=== PATIENT | male | born 1945 | race Caucasian/White ===

== ENCOUNTER 2017-08-28 07:12 | Inpatient (IN) ==
[2017-08-28] MEDS ORDERED: DIAZEPAM 5 MG TABLET PO ONE (08:38)
[2017-08-28 09:02] LABS: Basophils # 0.1 10*3/uL (0.0-0.2); Basophils % 0.6 % (0.0-0.8); Eosinophils # 0.5 10*3/uL (0.0-0.87); Eosinophils % 6.4 % (0.00-10.9); Hematocrit 37.2 VOL% (42.0-52.0); Hemoglobin 12.2 GM/DL (14.0-18.0); Immature Granulocytes % 0.4 %; Immature Granulocytes Absolute 0.03 #; Lymphocytes # 1.9 10*3/uL (1.4-4.0); Lymphocytes % 23.9 % (21.2-54.2); Mean Corpuscular HGB Conc 32.8 GM/DL (32-36); Mean Corpuscular Hemoglobin 29 PG (27-34); Mean Corpuscular Volume 87.9 FL (87-102); Mean Platelet Volume 9.3 FL (9.6-12.0); Monocytes # 0.7 10*3/uL (0.11-0.8); Monocytes % 8.9 % (1.7-12.7); Neutrophils # 4.8 10*3/uL (1.4-7.4); Neutrophils % 59.8 % (38.7-73.9); Platelet Count 331 T/CUMM (130-400); Red Blood Count 4.23 MC/CUMM (3.8-5.5); Red Cell Distribution Width 13.6 % (9.3-17.3)
[2017-08-28 09:08] LABS: Partial Thromboplastin Time 24.7 SECS (0-40)
[2017-08-28] MEDS ORDERED: DIAZEPAM 5 MG TABLET ONE (09:42)
[2017-08-28] MEDS: SODIUM CHLORIDE 0.45% 1,000 ML IV SCH (09:50)
[2017-08-28] MEDS ORDERED: LORazepam 1 MG TABLET PO PRN (20:01)
[2017-08-28] MEDS: BRIMONIDINE 0.1% OPH SOLN 5 ML BOTTLE BOTH EYES SCH (23:31)
[2017-08-28] MEDS: CARVEDILOL 25 MG TABLET PO SCH (23:31)
[2017-08-28] MEDS: DORZOLAMIDE 2% OPH SOLN 10 ML BOTTLE RIGHT EYE SCH (23:32)
[2017-08-28] MEDS: glipiZIDE 10 MG TABLET PO SCH (23:32)
[2017-08-29] MEDS ORDERED: metFORMIN 500 MG TABLET PO SCH (08:00)
[2017-08-29] MEDS: SODIUM CHLORIDE 0.45% 1,000 ML IV SCH (08:41)
[2017-08-29] MEDS ORDERED: TRAVOPROST 0.004% OPH SOLN 2.5 ML BOTTLE RIGHT EYE SCH (09:00)
[2017-08-29] MEDS ORDERED: LISINOPRIL 20 MG TABLET PO SCH (09:00)
[2017-08-29] MEDS ORDERED: NON-FORMULARY MEDICATION (Umeclidinium Brm/Vilanterol Tr [Anoro Ellipta] 1 PUFF) INH SCH (09:00)
[2017-08-29] MEDS ORDERED: POTASSIUM CHLORIDE 10 MEQ TABLET PO SCH (09:00)
[2017-08-29] MEDS ORDERED: SIMVASTATIN 40 MG TABLET PO SCH (09:00)
[2017-08-29] MEDS ORDERED: ATORVASTATIN 40 MG TABLET PO SCH (09:00)
[2017-08-29] MEDS ORDERED: MULTIVITAMIN (CENTRUM) TABLET PO SCH (09:00)
[2017-08-29] MEDS ORDERED: MAGNESIUM OXIDE 400 MG TABLET PO SCH (09:00)
[2017-08-29] MEDS ORDERED: amLODIPine 10 MG TABLET PO SCH (09:00)
[2017-08-29] MEDS: CARVEDILOL 25 MG TABLET PO SCH (09:07)
[2017-08-29] MEDS: DORZOLAMIDE 2% OPH SOLN 10 ML BOTTLE RIGHT EYE SCH (09:07)
[2017-08-29] MEDS: BRIMONIDINE 0.1% OPH SOLN 5 ML BOTTLE BOTH EYES SCH (09:07)
[2017-08-29] MEDS: glipiZIDE 10 MG TABLET PO SCH (09:09)
[2017-08-29] MEDS ORDERED: ACETAMINOPHEN 325 MG TABLET PO PRN (11:20)
[2017-08-29 16:51] VITALS: BP 146/67
== END 2017-08-29 17:25 | disposition home or self-care (01) | DRG 200 ==
LOC: N.RAD 07:12 → N.SDSINP 07:18 → N.4E 16:44
PROVIDERS: ADMIT Internal Medicine Pulmonary Disease; ATTEND Radiology Diagnostic Radiology
PROC: [UNRECOGNIZED PROCEDURE] (2017-08-28 15:35)

== ENCOUNTER 2017-12-02 06:45 | Inpatient (IN) ==
[2017-11-27 11:36] LABS: Basophils # 0.1 10*3/uL (0.0-0.2); Basophils % 0.9 % (0.0-0.8); Eosinophils # 0.5 10*3/uL (0.0-0.87); Eosinophils % 6.1 % (0.00-10.9); Hematocrit 35.4 VOL% (42.0-52.0); Hemoglobin 11.6 GM/DL (14.0-18.0); Immature Granulocytes % 0.4 %; Immature Granulocytes Absolute 0.03 #; Lymphocytes # 1.5 10*3/uL (1.4-4.0); Lymphocytes % 18.4 % (21.2-54.2); Mean Corpuscular HGB Conc 32.8 GM/DL (32-36); Mean Corpuscular Hemoglobin 29 PG (27-34); Mean Corpuscular Volume 88.9 FL (87-102); Mean Platelet Volume 9.4 FL (9.6-12.0); Monocytes # 0.7 10*3/uL (0.11-0.8); Monocytes % 8.8 % (1.7-12.7); Neutrophils # 5.3 10*3/uL (1.4-7.4); Neutrophils % 65.4 % (38.7-73.9); Platelet Count 316 T/CUMM (130-400); Red Blood Count 3.98 MC/CUMM (3.8-5.5); Red Cell Distribution Width 13.2 % (9.3-17.3); White Blood Count 8.1 T/CUMM (4-12)
[2017-11-27 12:09] LABS: Alanine Aminotransferase 17 U/L (16-61); Albumin 3.2 G/DL (3.4-5.0); Alkaline Phosphatase 62 U/L (45-117); Aspartate Amino Transferase 15 U/L (0-37); Bilirubin,Total < 0.39 MG/DL (0.2-1.0); Blood Urea Nitrogen 19 MG/DL (7-18); Calcium 8.7 MG/DL (8.5-10.1); Glucose 220 MG/DL (74-106); Osmolality,Calculated 285.5 MOS/KG (273-304); Potassium 2.7 MMOL/L (3.5-5.1); Sodium 139 MMOL/L (136-145); Total Protein 6.6 G/DL (6.4-8.3)
[~2017-12-02 06:45] MED LIST: ceFAZolin 1,000 MG in SYRINGE 1 EACH IV ONE
[2017-12-02] MEDS ORDERED: HEPARIN 5,000 UNIT/1 ML VIAL ONE (08:29)
[2017-12-02] MEDS: LACTATED RINGERS 1,000 ML IV SCH ×4 (08:29→23:50)
[2017-12-02] MEDS ORDERED: HYDROmorphone 2 MG/1 ML VIAL IV PRN (10:45)
[2017-12-02] MEDS ORDERED: oxyCODONE/ACETAMINOPHEN 5-325 MG TABLET PO PRN ×2 (10:45)
[2017-12-02] MEDS ORDERED: NALOXONE 0.4 MG/ML VIAL IV PRN (10:45)
[2017-12-02] MEDS ORDERED: ONDANSETRON 4 MG/2 ML VIAL IV PRN (10:45)
[2017-12-02] MEDS ORDERED: DEXTROSE 50% 25 GM/50 ML VIAL IV PRN ×2 (10:45→16:55)
[2017-12-02] MEDS ORDERED: GLUCAGON 1 MG VIAL IM PRN ×2 (10:45→16:55)
[2017-12-02] MEDS ORDERED: PROMETHAZINE 25 MG/1 ML VIAL IM PRN (10:45)
[2017-12-02] MEDS ORDERED: LORazepam 1 MG TABLET PO PRN (10:47)
[2017-12-02] MEDS: NITROPRUSSIDE 100 MG in DEXTROSE 5% 250 ML IV SCH (12:22)
[2017-12-02] MEDS: PHENYLEPHRINE DRIP 40 MG/250 ML PREMIX IV SCH (12:58)
[2017-12-02] MEDS: TRAVOPROST 0.004% OPH SOLN 2.5 ML BOTTLE RIGHT EYE SCH (12:58)
[2017-12-02] MEDS: HYDROmorphone 2 MG/1 ML VIAL IV PRN ×2 (13:44→21:47)
[2017-12-02] MEDS: CLOPIDOGREL 75 MG TABLET PO SCH (13:45)
[2017-12-02] MEDS: ASPIRIN EC 81 MG TABLET PO SCH (13:45)
[2017-12-02] MEDS ORDERED: DORZOLAMIDE 2% OPH SOLN 10 ML BOTTLE RIGHT EYE SCH (15:00)
[2017-12-02] MEDS ORDERED: BRIMONIDINE 0.1% OPH SOLN 5 ML BOTTLE BOTH EYES SCH (21:00)
[2017-12-02] MEDS: GEMFIBROZIL 600 MG TABLET PO SCH (21:47)
[2017-12-02] MEDS: CARVEDILOL 25 MG TABLET PO SCH (21:47)
[2017-12-02] MEDS: DORZOLAMIDE 2% OPH SOLN 10 ML BOTTLE BOTH EYES SCH (21:47)
[2017-12-02] MEDS: glipiZIDE 10 MG TABLET PO SCH (21:47)
[2017-12-02] MEDS: BRIMONIDINE 0.1% OPH SOLN 5 ML BOTTLE BOTH EYES SCH (21:47)
[2017-12-03] MEDS: LACTATED RINGERS 1,000 ML IV SCH ×2 (07:59→09:08)
[2017-12-03] MEDS ORDERED: MAGNESIUM OXIDE 400 MG TABLET PO SCH (09:00)
[2017-12-03] MEDS ORDERED: POTASSIUM CHLORIDE 20 MEQ TABLET PO SCH (09:00)
[2017-12-03] MEDS ORDERED: LISINOPRIL 20 MG TABLET PO SCH (09:00)
[2017-12-03] MEDS ORDERED: ATORVASTATIN 40 MG TABLET PO SCH (09:00)
[2017-12-03] MEDS: GEMFIBROZIL 600 MG TABLET PO SCH (09:07)
[2017-12-03] MEDS: ASPIRIN EC 81 MG TABLET PO SCH (09:07)
[2017-12-03] MEDS: TRAVOPROST 0.004% OPH SOLN 2.5 ML BOTTLE RIGHT EYE SCH (09:07)
[2017-12-03] MEDS: glipiZIDE 10 MG TABLET PO SCH (09:07)
[2017-12-03] MEDS: CLOPIDOGREL 75 MG TABLET PO SCH (09:07)
[2017-12-03] MEDS: BRIMONIDINE 0.1% OPH SOLN 5 ML BOTTLE BOTH EYES SCH (09:07)
[2017-12-03] MEDS: DORZOLAMIDE 2% OPH SOLN 10 ML BOTTLE BOTH EYES SCH (09:08)
[2017-12-03] MEDS: CARVEDILOL 25 MG TABLET PO SCH (09:34)
[2017-12-03] MEDS: PHENYLEPHRINE DRIP 40 MG/250 ML PREMIX IV SCH (11:56)
[2017-12-03] MEDS: NITROPRUSSIDE 100 MG in DEXTROSE 5% 250 ML IV SCH (11:56)
[2017-12-03] MEDS ORDERED: metFORMIN 500 MG TABLET PO SCH (17:00)
[2017-12-03 18:39] VITALS: BP 189/86
== END 2017-12-03 17:35 | disposition home or self-care (01) | DRG 39 ==
LOC: N.SDSINP 06:45 → N.ICU 11:41 → N.3E 12-03 10:55
PROVIDERS: ADMIT Surgery; ATTEND Surgery

== ENCOUNTER 2018-04-10 20:48 | Inpatient (IN) ==
[2018-04-11] MEDS ORDERED: DEXTROSE 50% 25 GM/50 ML VIAL IV PRN (00:36)
[2018-04-11] MEDS ORDERED: ACETAMINOPHEN 325 MG TABLET PO PRN (00:36)
[2018-04-11] MEDS ORDERED: GLUCAGON 1 MG VIAL IM PRN (00:36)
[2018-04-11] MEDS: ALBUTEROL/IPRATROPIUM 3 ML NEB RESP TX SCH ×3 (01:47→13:05)
[2018-04-11] MEDS ORDERED: GEMFIBROZIL 600 MG TABLET PO SCH (07:30)
[2018-04-11 07:31] LABS: Basophils # 0.1 10*3/uL (0.0-0.2); Basophils % 0.5 % (0.0-0.8); Eosinophils # 0.3 10*3/uL (0.0-0.87); Eosinophils % 3.2 % (0.00-10.9); Hematocrit 36.6 VOL% (42.0-52.0); Immature Granulocytes % 0.4 %; Immature Granulocytes Absolute 0.04 #; Lymphocytes # 1.2 10*3/uL (1.4-4.0); Lymphocytes % 12.7 % (21.2-54.2); Mean Corpuscular HGB Conc 32.8 GM/DL (32-36); Mean Corpuscular Hemoglobin 29 PG (27-34); Mean Corpuscular Volume 88.2 FL (87-102); Mean Platelet Volume 8.9 FL (9.6-12.0); Monocytes # 0.9 10*3/uL (0.11-0.8); Monocytes % 9.6 % (1.7-12.7); Neutrophils # 7.1 10*3/uL (1.4-7.4); Neutrophils % 73.6 % (38.7-73.9); Platelet Count 411 T/CUMM (130-400); Red Blood Count 4.15 MC/CUMM (3.8-5.5); Red Cell Distribution Width 14.2 % (9.3-17.3); White Blood Count 9.6 T/CUMM (4-12)
[2018-04-11] MEDS ORDERED: CARVEDILOL 25 MG TABLET PO SCH (08:00)
[2018-04-11] MEDS ORDERED: metFORMIN 500 MG TABLET PO SCH (08:00)
[2018-04-11] MEDS ORDERED: glipiZIDE 10 MG TABLET PO SCH (08:00)
[2018-04-11 08:01] LABS: Alanine Aminotransferase 31 U/L (16-61); Albumin 2.8 G/DL (3.4-5.0); Alkaline Phosphatase 107 U/L (45-117); Aspartate Amino Transferase 24 U/L (0-37); Bilirubin,Total < 0.39 MG/DL (0.2-1.0); Blood Urea Nitrogen 17 MG/DL (7-18); Calcium 8.4 MG/DL (8.5-10.1); Glucose 127 MG/DL (74-106); Osmolality,Calculated 284.3 MOS/KG (273-304); Potassium 3.7 MMOL/L (3.5-5.1); Sodium 141 MMOL/L (136-145); Total Protein 6.7 G/DL (6.4-8.3)
[2018-04-11] MEDS ORDERED: ASPIRIN EC 325 MG TABLET PO SCH (09:00)
[2018-04-11] MEDS ORDERED: TRAVOPROST 0.004% OPH SOLN 2.5 ML BOTTLE RIGHT EYE SCH (09:00)
[2018-04-11] MEDS ORDERED: amLODIPine 10 MG TABLET PO SCH (09:00)
[2018-04-11] MEDS ORDERED: LISINOPRIL 20 MG TABLET PO SCH (09:00)
[2018-04-11] MEDS ORDERED: MULTIVITAMIN (CENTRUM) TABLET PO SCH (09:00)
[2018-04-11] MEDS ORDERED: POTASSIUM CHLORIDE 20 MEQ TABLET PO SCH (09:00)
[2018-04-11] MEDS ORDERED: PANTOPRAZOLE 40 MG TABLET PO SCH (09:00)
[2018-04-11] MEDS: INSULIN REGULAR 100 UNIT/ML SUBCUT SCH ×2 (09:51→11:52)
[2018-04-11] MEDS: BRIMONIDINE 0.1% OPH SOLN 5 ML BOTTLE BOTH EYES SCH ×2 (09:55→16:05)
[2018-04-11] MEDS ORDERED: DESITIN 4OZ/NYSTATIN 15 GRAM MIXTURE PASTE TOP SCH (15:00)
[2018-04-11 17:07] VITALS: BP 150/71
[2018-04-11] MEDS ORDERED: ATORVASTATIN 40 MG TABLET PO SCH (21:00)
== END 2018-04-11 16:00 | disposition home or self-care (01) | DRG 187 ==
LOC: N.TELES 22:27
PROVIDERS: ADMIT Internal Medicine; ATTEND Family Medicine